=== PATIENT | female | born 1965 | race Caucasian/White ===

== ENCOUNTER → 2017-12-25 | Day surgery (SDC) | payer BC ==
--- NOTE | 2017-12-26 14:30 | PATH ---
Surgical Pathology Report Patient Name: JESSA BARRAGAN [facility]. Rec. #: [id number] /Age/Gender: 1965 (Age: 52) / F Account: [id number] Location: [facility] RADIOLOGY U Taken: 12/25/2017 Received: 12/25/2017 Reported: 12/26/2017 Physicians: Lucian Dodge M.D. Specimen(s) Received RIGHT AXILLARY NODE CORE BIOPSY Clinical History Rt breast Ca Final Diagnosis LYMPH NODE, RIGHT AXILLA, CORE BIOPSY: METASTATIC CARCINOMA, EXTENSIVELY INVOLVING LYMPH NODE. (SEE NOTE) Note: The tissue cores are comprised almost entirely of invasive carcinoma with only scant associated residual landmark lymph node tissue identified. Results of ER, OH, HER2 & Ki67 studies will be reported separately in an addendum. Electronically Signed Kathy Bhatia M.D. Addendum Reported: 12/27/2017 Addendum Diagnosis Results of ER, OH, Her2 (IHC) & Ki-67 studies performed at [place], [place] ([id number]) are as follows: ER (clone [id number] mouse monoclonal antibody by [employer]): 100 % nuclear staining with strong intensity (Positive). OH (clone16 mouse monoclonal antibody by [employer]): 70 % nuclear staining with moderate to strong intensity (Positive). Her2 IHC (EP3 from [employer], formerly known as [id number], using Mulligan Polymer Refine detection kit): 1+ (Negative). Ki-67: 15-20% (Intermediate proliferative index). Positive and negative controls (internal if applicable) show appropriate results. Formalin fixation and cold ischemic times are within current ASCO/CAP recommendations for ER, OH and Her2 testing. Kathy Bhatia M.D. Gross Description Received in formalin labeled "right axilla biopsy," is a 2.5 x 2.0 x 0.3 cm aggregate of multiple norman-yellow, irregular to cylindrical portions of fibroadipose tissue admixed with blood clot. The formalin is filtered and the specimen is entirely submitted in one cassette. Time to formalin fixation: < 1 minute Total formalin fixation time: Approximately 18 hours. /12/26/2017 saudi/12/26/2017
--- NOTE | 2017-12-27 15:50 | OP ---
DATE OF OPERATION: 12/25/2017 PREOPERATIVE DIAGNOSIS: Right breast cancer with right axillary suspicious node by ultrasound. POSTOPERATIVE DIAGNOSIS: Right breast cancer with right axillary suspicious node by ultrasound. PROCEDURE: Right axillary node ultrasound-guided core biopsy with clip placement and right breast mass clip placement. ANESTHESIA: Local. ATTENDING SURGEON: Luis Dodge MD ESTIMATED BLOOD LOSS: Minimal. COMPLICATIONS: None. PROCEDURE: The patient was made aware of the risks and benefits of the procedure and consented. Before this she had had a right breast biopsy, but the clip did not deploy, so we had to place a clip into the biopsy region, but as part of the workup we noticed a right axillary node that needed to be biopsied. The right axillary node was approached first. Under sterile conditions with 1% lidocaine for local anesthesia, a small hunter was made in the skin. Using a 13-gauge, suction-biopsy device, via inferior-lateral approach, multiple cores were obtained and submitted to Pathology. Likewise, under ultrasound guidance, a barrel Oakley clip was placed into the lymph node region. Well tolerated by patient. A Steri-Strip was applied. The right breast was then approached. Under sterile conditions, a small hunter was made in the prior incision that had been used for biopsy and an open coil Oakley-SAYDA clip was placed into the middle of the suspicious mass. Again, Steri-Strips and sterile dressings were then applied and the patient was then turned over to Radiology where a postprocedure mammogram was performed. We will contact her with the results of the biopsy. LUIS DODGE M.D. [id number]
== END | disposition home or self-care (01) ==
LOC: FRADUS-SUR 13:43
PROVIDERS: ATTEND Surgery Surgical Oncology
PROC: 07B53ZX Excision of Right Axillary Lymphatic, Percutaneous Approach, Diagnostic (ICD-10-PCS; principal; 2017-12-25)
PROC: BH47ZZZ Ultrasonography of Upper Extremity (ICD-10-PCS; 2017-12-25)
DX: C50.911 Malignant neoplasm of unspecified site of right female breast (principal); C77.3 Secondary and unspecified malignant neoplasm of axilla and upper limb lymph nodes
CPT/HCPCS: 38505; 76942-TC; 77065-TC; 87899; 88305-TC; A4648

== ENCOUNTER 2017-12-28 08:11 | Day surgery (SDC) | payer BC, OTHER ==
--- NOTE | 2017-12-25 10:04 | HP ---
Admitting History and Physical - Primary Care Physician PCP: Jamir Burton - Admission Chief Complaint: right breast cancer History of Present Illness: 52 yo female was noted to have a palpable right breast mass on exam in November. Patient underwent a mammo and US which was c/w 4.7 cm mass at 9-10 oclock. 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 Patient is now presenting for lifeport insertion in order to start neoadjuvant therapy. History Source: Patient Limitations to Obtaining History: No Limitations - Past Medical History Psych: Yes: Anxiety, Depression Endocrine: Yes: Hypothyroidism - Past Surgical History Past Surgical History: Yes: Appendectomy, Breast Biopsy (left breast exc bx ( 2003)), Cholecystectomy Home Medications - Allergies Allergies/Adverse Reactions: Allergies Allergy/AdvReac Type Severity Reaction Status Date / Time No Known Allergies Allergy Verified 12/25/17 09:58 - Home Medications Home Medications (free text): lexapro Family Disease History - Family Disease History Family Disease History: CA: Grandparent (paternal...breast and ovarian cancer) Other Family History: paternal aunt-breast cancer Review of Systems - Review of Systems Neck: reports: Pain on Movement Physical Examination Constitutional: Yes: Well Nourished Breast(s): Yes: Other (Ecchymosis noted in the right upper outer quad. A 4 cm mass noted in the UOQ with 2 highly suspicious lower right axillary node noted. No left suspicious masses or adenopathy noted.) Problem List - Problems (1) Breast cancer, right Code(s): C50.911 - MALIGNANT NEOPLASM OF UNSP SITE OF RIGHT FEMALE BREAST Qualifiers: Breast location: upper outer quadrant of breast Estrogen receptor status: positive Patient sex: female Qualified Code(s): C50.411 - Malignant neoplasm of upper-outer quadrant of right female breast; Z17.0 - Estrogen receptor positive status [ER+]; Z17.0 - Estrogen receptor positive status [ER+] Assessment/Plan Plan: Insertion of lifeport.
[2017-12-25 10:05] VITALS: BMI 27.9
[2017-12-28] MEDS ORDERED: ONDANSETRON 4 MG/2 ML VIAL IVPUSH PRN (09:33)
[2017-12-28] MEDS ORDERED: KETOROLAC TROMETHAMINE 30 MG/1 ML VIAL IVPUSH PRN (09:33)
[2017-12-28] MEDS ORDERED: HEPARIN NA (PORCINE) 5,000 UNITS/ML 1ML VIAL ONE (09:43)
[2017-12-28] MEDS ORDERED: DEXTROSE 5%-0.45% SALINE 1,000 ML IV SCH (09:45)
[2017-12-28] MEDS ORDERED: LIDOCAINE HCL 1%, 10 MG/ML (20ML VIAL) ONE (09:45)
[2017-12-28] MEDS ORDERED: MIDAZOLAM HCL 2 MG/2 ML SINGLE DOSE VIAL ONE (10:07)
[2017-12-28] MEDS ORDERED: PROPOFOL 20 ML ONE (10:07)
[2017-12-28] MEDS ORDERED: oxyCODONE HCL 5 MG TABLET PO PRN ×2 (10:15)
[2017-12-28] MEDS ORDERED: ACETAMINOPHEN 325 MG TABLET (FP) PO PRN (10:15)
[2017-12-28] MEDS ORDERED: LACTATED RINGERS SOLUTION 1,000 ML IV SCH (10:15)
[2017-12-28] MEDS ORDERED: LIDOCAINE HCL 1%, 10 MG/ML (50 mL VIAL) IJ ONE (10:28)
[2017-12-28] MEDS ORDERED: HEPARIN NA (PORCINE) PF 1,000 UNITS/ML - 2ML VIAL SQ ONE (10:33)
[2017-12-28] MEDS ORDERED: BUPIVACAINE HCL/PF 2.5 MG/ML - 30 ML VIAL IJ ONE (11:01)
[2017-12-28] MEDS ORDERED: BUPIVACAINE HCL/PF 0.25% (2.5MG/ML) 10 ML VIAL IJ ONE (11:07)
[2017-12-28 11:48] VITALS: TEMP 97.5
[2017-12-28 12:17] VITALS: PULSE 83
--- NOTE | 2017-12-28 12:24 | OP ---
DATE OF OPERATION: 12/28/2017 PREOPERATIVE DIAGNOSIS: Right breast cancer, upper outer quadrant, with positive axillary lymph nodes. POSTOPERATIVE DIAGNOSIS: Right breast cancer, upper outer quadrant, with positive axillary lymph nodes. PROCEDURE: Placement of a left single-lumen subclavian Port--A-Cath under ultrasound guidance with fluoroscopy. ANESTHESIA: Local with IV sedation. SURGEON: Jamir Burton MD CYLINDER BLOCK HOLE RELINER: SONJA Cadena COMPLICATIONS: There were no complications. Briefly the patient is a 52-year-old premenopausal white female of [place] descent. She has a strong family history with her paternal grandmother who had breast and ovarian cancer in her 70s and paternal aunt had breast cancer at age 84. The patient felt a mass towards the upper outer aspect of the right breast and was found to have a 4.7-cm mass towards the upper outer aspect of the right breast on ultrasound and had palpable axillary lymph nodes which were biopsied, showing metastatic disease as well. The cancer was a poorly differentiated invasive duct cancer which was ER/MS positive, HER2/shanell negative with a Ki-67 of 25%. She had a PET scan showing no distant disease and was seen by Medical Oncology and planned for neoadjuvant chemotherapy. She now comes in for a Port-A-Cath placement for chemotherapy. The patient was brought in to Ambulatory Surgery on December 28, 2017. In the holding area a site verification was made and informed consent was obtained. She was brought into the operating room and laid in the OR table in a supine position. Venodynes were placed on the lower extremities. She received a gram of Ancef prior to incision. She received IV sedation and the left upper chest wall and neck were sterilely prepped and draped in the usual fashion. A rolled sheet was placed under her midline back and her left arm was tucked at her side. Lidocaine 1% was given directly underneath the left clavicle after IV sedation was given. The left subclavian vein was easily cannulated under ultrasound guidance and the wire threaded down into the superior vena cava under fluoroscopy. The wire was clipped to the drape. At this point 1% lidocaine was then given along the upper left chest wall and a 3-cm incision was made and dissection was undertaken to form an infraclavicular pocket. Electrocautery was used for hemostasis. At this point the catheter was cut to the appropriate length and attached to the Port-A-Cath chamber. It was placed into the infraclavicular pocket and secured in place using 2 separate 2-0 Prolene sutures. At this point the tear-away sheath introducer with a dilator was placed over the wire under fluoroscopy into the superior vena cava and the wire was removed with the dilator. The catheter was then threaded down the tear-away sheath and the tear-away sheath was torn away, leaving the catheter in a good position in the superior vena cava. There was excellent blood return from the Port-A-Cath and it was flushed with dilute heparin at 10 units of heparin/mL. The Port-A-Cath chamber was then accessed again using a Delaney needle and 1.5 mL of concentrated heparin at 1000 units/mL were instilled into the Port-A-Cath chamber. The wound was then closed using interrupted 3-0 deep dermal Vicryl suture and a running 4-0 subcuticular Biosyn suture. Mastisol, Steri-Strips were applied over the wound and a compressive dressing placed over this. The patient tolerated the procedure well without difficulty. All sponge and needle counts were correct at the end of the case. Estimated blood loss was minimal. The patient was awake and alert at the end of the procedure and brought back to ambulatory surgery postoperatively where she will get a chest x-ray just to confirm placement again. The patient will start chemotherapy next week and can follow up in 1 week for a formal wound evaluation. The patient will follow up after chemotherapy for definitive surgery for her right breast cancer. [place] [id number]
[2017-12-28 13:17] VITALS: BP 108/78
== END 2017-12-28 13:17 | disposition home or self-care (01) ==
LOC: FASU 08:11
PROVIDERS: ATTEND Surgery Surgical Oncology
PROC: B517ZZA Fluoroscopy of Left Subclavian Vein, Guidance (ICD-10-PCS; 2017-12-28)
PROC: 05H633Z Insertion of Infusion Device into Left Subclavian Vein, Percutaneous Approach (ICD-10-PCS; principal; 2017-12-28 10:27)
DX: C50.411 Malignant neoplasm of upper-outer quadrant of right female breast (principal); C77.3 Secondary and unspecified malignant neoplasm of axilla and upper limb lymph nodes
CPT/HCPCS: 71045-TC-FY; 84703; J1644

== ENCOUNTER 2018-06-28 06:37 | Day surgery (SDC) | payer BC, OTHER ==
[2018-06-22 13:35] VITALS: BMI 25.9
--- NOTE | 2018-06-26 09:54 | HP ---
Admitting History and Physical - Primary Care Physician PCP: Jamir Burton - Admission Chief Complaint: right breast cancer History of Present Illness: 53 yo female was noted to have a palpable mass 11/2017 and underwent a mammo and US. The studies revealed a right 4.7 cm mass at 9-10 o'clock region. Right core bx was c/w a poorly dif invasive ductal ca ER and PA positive. HER 2 negative. The MRI done was c/w known cancer as well as suspicious right axillary lymph nodes. Right axillary lymph nodes were c/w metastatic dz on core bx. Patient underwent neoadjuvant chemo and is now presenting for right WE with SNBx and andx. History Source: Patient - Past Medical History ...LMP: 02/14/18 ...: No Psych: Yes: Anxiety, Depression Endocrine: Yes: Hypothyroidism - Past Surgical History Past Surgical History: Yes: Appendectomy, Breast Biopsy (left breast exc bx ( 2003) c/w lyme dz of the breast), Cholecystectomy - Smoking History Smoking history: Never smoked Have you smoked in the past 12 months: No - Alcohol/Substance Use Hx Alcohol Use: No Home Medications - Allergies Allergies/Adverse Reactions: Allergies Allergy/AdvReac Type Severity Reaction Status Date / Time No Known Allergies Allergy Verified 06/22/18 13:23 - Home Medications Home Medications: Ambulatory Orders Bupropion HCl [Wellbutrin Xl] 300 mg PO DAILY 12/25/17 Escitalopram Oxalate [Lexapro -] 20 mg PO DAILY 12/25/17 Levothyroxine [Synthroid -] 100 mcg PO DAILY 12/25/17 Albuterol Sulfate Inhaler - [Ventolin Hfa Inhaler -] 1 - 2 inh PO QID PRN Fluticasone/Salmeterol [Advair 250-50 Diskus] 1 each IH ASDIR PRN 06/22/18 Family Disease History - Family Disease History Family Disease History: CA: Grandparent (paternal...breast and ovarian cancer) Other Family History: paternal aunt-breast cancer Review of Systems - Review of Systems Constitutional: reports: No Symptoms Cardiovascular: reports: No Symptoms Respiratory: reports: No Symptoms Physical Examination Constitutional: Yes: Well Nourished, Calm Breast(s): Yes: Other (Moderately ptotic full C-cup breasts without skin changes or nipple discharge. Right breast slight thickening noted in the outer aspect. Firm right axillary nodes noted. Left breast without suspicious masses or adenopathy noted) Problem List - Problems (1) Breast cancer, right Code(s): C50.911 - MALIGNANT NEOPLASM OF UNSP SITE OF RIGHT FEMALE BREAST Qualifiers: Breast location: upper outer quadrant of breast Estrogen receptor status: positive Patient sex: female Qualified Code(s): C50.411 - Malignant neoplasm of upper-outer quadrant of right female breast; Z17.0 - Estrogen receptor positive status [ER+]; Z17.0 - Estrogen receptor positive status [ER+] Assessment/Plan Right breast WE with snbx, lymphoscintogram, possible andx
[2018-06-28] MEDS ORDERED: ISOSULFAN BLUE 10 MG/ML VIAL SQ ONE (13:34)
[2018-06-28] MEDS ORDERED: BUPIVACAINE HCL/PF 0.5% (5MG/ML) 10 ML VIAL ONE (13:34)
[2018-06-28] MEDS ORDERED: MIDAZOLAM HCL 2 MG/2 ML SINGLE DOSE VIAL ONE (14:01)
[2018-06-28] MEDS ORDERED: PROPOFOL 20 ML ONE (14:01)
[2018-06-28] MEDS ORDERED: fentaNYL CITRATE 250 MCG/5 ML VIAL ONE (14:01)
[2018-06-28] MEDS ORDERED: ceFAZolin SODIUM 1 GM VIAL ONE (14:19)
[2018-06-28] MEDS ORDERED: ONDANSETRON 4 MG/2 ML VIAL ONE (14:19)
[2018-06-28] MEDS ORDERED: DEXAMETHASONE SOD PHOSPHATE 4 MG/1 ML VIAL ONE (14:19)
[2018-06-28] MEDS ORDERED: LIDOCAINE HCL 2% JELLY (5 ML/TUBE) ONE (14:19)
[2018-06-28] MEDS ORDERED: KETOROLAC TROMETHAMINE 30 MG/1 ML VIAL ONE (14:19)
[2018-06-28] MEDS ORDERED: ePHEDrine SULFATE 50 MG/1 ML AMPULE ONE (14:40)
[2018-06-28] MEDS ORDERED: BUPIVACAINE HCL/PF 0.5% (5MG/ML) 10 ML VIAL IJ ONE ×2 (15:34)
[2018-06-28] MEDS ORDERED: GUM MASTIC/STORAX/MSAL/ALCOHOL 1 DRP DROPSBTL MC ONE (16:21)
[2018-06-28] MEDS ORDERED: ZOLPIDEM TARTRATE 5 MG TABLET PO PRN (16:38)
[2018-06-28] MEDS ORDERED: ONDANSETRON 4 MG/2 ML VIAL IVPB PRN (16:38)
[2018-06-28] MEDS ORDERED: ACETAMINOPHEN 325 MG TABLET (FP) PO PRN (16:38)
[2018-06-28] MEDS ORDERED: ONDANSETRON 4 MG/2 ML VIAL IVPUSH PRN (16:41)
[2018-06-28] MEDS ORDERED: oxyCODONE HCL 5 MG TABLET PO PRN ×2 (16:41)
[2018-06-28] MEDS ORDERED: PROMETHAZINE HCL 25 MG/1 ML VIAL IVPUSH PRN (16:41)
[2018-06-28] MEDS ORDERED: DEXTROSE 5%-0.45% SALINE 1,000 ML IV SCH (16:45)
[2018-06-28 18:05] LABS: HEMATOCRIT 34.3 % (32.4-45.2); HEMOGLOBIN 11.6 GM/dl (10.7-15.3); MCHC 33.9 g/dl (32.0-36.0); MEAN CELL VOLUME 94.4 fl (80-96); MEAN PLT VOLUME 8.2 fl (7.5-11.1); PLATELET COUNT 145 K/MM3 (134-434); RBC 3.64 M/mm3 (3.60-5.2); RDW 14.7 % (11.6-15.6); WHITE BLOOD COUNT 11.5 K/mm3 (4.0-10.8)
[2018-06-29 07:47] LABS: HEMATOCRIT 35.2 % (32.4-45.2); HEMOGLOBIN 11.6 GM/dl (10.7-15.3); MCH 31.6 pg (25.7-33.7); MCHC 32.9 g/dl (32.0-36.0); MEAN PLT VOLUME 8.4 fl (7.5-11.1); PLATELET COUNT 251 K/MM3 (134-434); RBC 3.67 M/mm3 (3.60-5.2); RDW 14.4 % (11.6-15.6); WHITE BLOOD COUNT 10.5 K/mm3 (4.0-10.8)
--- NOTE | 2018-06-29 08:00 | OP ---
DATE OF OPERATION: 06/28/2018 PREOPERATIVE DIAGNOSIS: Right breast upper outer quadrant breast cancer. POSTOPERATIVE DIAGNOSIS: Right breast upper outer quadrant breast cancer. PROCEDURE: Right breast partial mastectomy with mammographic needle localization as well as right axillary sentinel lymph node biopsy with ultrasound needle localization followed axillary lymph node dissection and tissue transfer closure with a 3 x 4 cm breast tissue closure. ANESTHESIA: General laryngeal mask airway anesthesia. PRIMARY SURGEON: Skye Burton MD MANAGER BATTERY: SONJA Solorio COMPLICATIONS: There were no complications. INDICATIONS: Briefly, the patient is a 53-year-old premenopausal white female of [place] descent with a family history with her paternal grandmother who had breast and ovarian cancer in her 70s, her paternal aunt had breast cancer at age 84. The patient felt a mass in the upper outer aspect of the right breast in November of 2017 and underwent a mammography and ultrasound showing an area of distortion in the upper outer aspect of the right breast, and ultrasound showed a 4.7 x 4 x 3.6 cm density in the right breast 9 to 10 o'clock region. Ultrasound-guided core biopsy performed in November of 2017 showed a poorly differentiated invasive duct cancer, which was ER/NM positive, HER2/shanell negative, with a Ki-67 of 25%. She had palpable right axillary adenopathy, and an axillary lymph node biopsy showed positive axillary disease. An MRI showed the cancer to be about 4 cm with 3 suspicious axillary lymph nodes. PET scan showed no distant metastatic disease. She underwent neoadjuvant chemotherapy at [facility], and then, after chemotherapy, followup MRI did show some decrease in size of the right breast cancer now measuring 2.6 cm, and there were still a couple of thickened nodes seen in the right axillary region. She was advised on undergoing a partial mastectomy with the sentinel lymph node biopsy with localization of both the cancer as well as the clip in the previously biopsied lymph node. She understood the possible need for an axillary lymph node dissection. DESCRIPTION OF PROCEDURE: The patient was brought in for the procedure on June 28, 2018. She first underwent localizations of both the clip in the upper outer aspect of the right breast and the clip in the right axillary lymph node under ultrasound guidance, and then, underwent a lymphoscintigraphy at [facility]. She was brought to the [place] holding area. In the holding area, site verification was made and informed consent was obtained. She was then brought into the operating room and laid on the OR table in the supine position. Venodynes were placed on the lower extremities, and she received 1 g of Ancef prior to incision. Then, 3 mL of lymphazurin blue were injected intradermally and peritumorally around the needle localization site. A massage was instituted. She underwent general laryngeal mask airway anesthesia, and the right breast was sterilely prepped and draped in the usual fashion with the right arm prepped in the field. Time-out was performed. The sentinel lymph node biopsy was first performed. An incision was made just below the hair-bearing area of the right axilla, and dissection was undertaken around the needle localization site, and the lymph nodes were removed from around the needle localization site with a grossly suspicious node found at the tip of the wire. There were actually at least 2 nodes in this specimen removed with a wire, and specimen radiography showed the removal of the clip in question. These 2 nodes were sent down for frozen section as well as a 3rd node, which was also grossly suspicious in the level 1 region of the right axilla. There was no radioactive dye found in the right axilla likely due to chronic lymphatic obstruction. The blue dye, however, did seem to travel well. Frozen section came back, and 2 of the 3 nodes were still positive for metastatic disease. At this point, the wide excision was undertaken, and a small ellipse of skin was removed with the wide excision towards the upper outer aspect of the right breast, and dissection was undertaken all the way down to the pectoralis major muscle. The breast tissue was completely removed from around the wire, and specimen was oriented with a long-lateral short-superior suture. Specimen radiograph showed removal of the clip in question. Separate margins were then taken on the superior, inferior, medial, lateral, and deep aspects, with sutures marking the biopsy cavity side of each margin specimen. All the specimens were sent separately to Pathology in formalin, and hemostasis was achieved, and the wound was copiously irrigated with warm sterile saline. The breast tissue was undermined to allow for a 4 x 3 cm tissue transfer closure, and the breast tissue was reapproximated using interrupted 2-0 plain suture. The skin was closed using interrupted 3-0 deep dermal Vicryl suture and a running 4-0 subcuticular Biosyn suture. At this point, the axillary dissection was undertaken through the sentinel lymph node biopsy incision. A level 1 level 2 axillary dissection was undertaken, and the axillary vein was used as a superior border to dissection. The pec minor is a medial border and latissimus is a lateral border. The long thoracic and thoracodorsal nerves were identified and spared throughout their entire courses. The lymph node contents were cleared in this level 1 level 2 dissection. There were not a lot of obvious nodes seen in that node dissection. No other gross nodes were seen or felt. The tissue was all sent as right level 1 level 2 axillary lymph node dissection. Hemostasis was achieved. A 15 Ramy drain was placed into the right axilla, brought through separate stab incision in the anterior axillary line, and sutured in place using 3-0 nylon suture. The axillary wound was closed using interrupted 2-0 plain suture, and the skin was closed using interrupted 3-0 deep dermal Vicryl suture and a running 4-0 subcuticular Biosyn suture. Mastisol and Steri-Strips were applied over the wounds with a compressive dressing placed over this. She was placed in a surgical bra postoperatively. Laryngeal mask airway tube was removed at the end of the case, and we did instill Marcaine in the wound for postoperative pain control. The patient will be recovered in the post-anesthesia care unit and will be admitted overnight just for a short 23-hour admit to teach her drain care and pain management. She will able to be discharged home tomorrow morning if she is stable. All sponge and needle counts were correct at the end of the case, and estimated blood loss was only about 20 mL. She was hemodynamically stable throughout. SKYE BURTON M.D. [id number]
--- NOTE | 2018-06-29 10:06 | PN ---
Progress Note (short form) - Note Progress Note: POD #1. VSS. Pt. doing well, sitting up comfortably in chair. No complaints. No apparent anesthetic complications noted. Pt. to be discharged this morning.
[2018-06-29 11:08] VITALS: BP 115/60; PULSE 88; TEMP 98.5
== END 2018-06-29 10:50 | disposition home or self-care (01) ==
LOC: FASUSAT 06:37 → FASU 06:37 → FM/S 18:10 → FASUSAT 06-29 10:50
PROVIDERS: ATTEND Surgery Surgical Oncology
PROC: 05H633Z Insertion of Infusion Device into Left Subclavian Vein, Percutaneous Approach (ICD-10-PCS; principal; 2018-06-28 12:00)
PROC: B547ZZA Ultrasonography of Left Subclavian Vein, Guidance (ICD-10-PCS; 2018-06-28 12:00)
PROC: B517ZZA Fluoroscopy of Left Subclavian Vein, Guidance (ICD-10-PCS; 2018-06-28 12:00)
DX: C50.411 Malignant neoplasm of upper-outer quadrant of right female breast (principal); Z17.0 Estrogen receptor positive status [ER+]
CPT/HCPCS: 19281; 19286; 36415; 76937; 77001-TC-FY; 78195-TC; 84703; 85027; 94760; A9541